=== PATIENT | female | born 1960 | race Caucasian/White ===

== ENCOUNTER 2017-01-22 18:27 | Emergency (ER) | payer SELFPAY ==
[~2017-01-22] VITALS: Ht 162.6 cm; Wt 134.6 kg
[~2017-01-22 18:27] MED LIST: BENA40TA54 PO
[2017-01-22 18:32] VITALS: Ht 162.6 cm; Wt 134.6 kg
== END 2017-01-22 21:00 | disposition left against medical advice (07) ==
LOC: FTE 18:27
DX: Z53.21 Procedure and treatment not carried out due to patient leaving prior to being seen by health care provider (principal)